=== PATIENT | female | born 1980 | race Caucasian/White ===

== ENCOUNTER 2019-05-06 16:02 | Emergency (ER) | payer MEDICAID ==
--- NOTE | 2019-05-06 16:39 | EDM.PDOC ---
ED HPI GENERAL MEDICAL PROBLEM - General Chief Complaint: Upper Extremity Injury/Pain Stated Complaint: LEFT ARM FEELS NUMB Time Seen by Provider: 05/06/19 16:20 Source of Information: Reports: Patient, Old Records History Limitations: Reports: No Limitations - History of Present Illness INITIAL COMMENTS - FREE TEXT/NARRATIVE: 38 yo female presents with L arm numbness since Tuesday night. Gets some subjective relief by holding a vibrating tool in her L axilla. The numbness is worse from the elbow down. She has had intermittent morning numbness in the past to that extremity that improves within a few minutes by shaking the hand. Thinks all 5 of her digits on that hand are equally numb. No hand weakness. Has a mild FALCON today, but had not had this before today. Denies any other issues such as vision changes, weakness, trouble speaking, seizures, issues with swallowing, etc. 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 Onset: Gradual Onset Date: 05/04/19 Duration: Day(s): (2) Location: Reports: Upper Extremity, Left Quality: Reports: Other (numb) Severity: Moderate Improves with: Reports: None Worsens with: Reports: Other (unknown) Context: Reports: Other (see HPI) Associated Symptoms: Reports: No Other Symptoms Treatments GUIDANCE SERVICES COORDINATOR: Reports: Other (see below) (none) Left Arm Pain Score (Numeric/FACES): 5 - Related Data Allergies Allergy/AdvReac Type Severity Reaction Status Date / Time No Known Allergies Allergy Verified 05/06/19 16:18 Home Meds: Home Meds NK [No Known Home Meds] 05/06/19 [History] 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 Denies: Confusion, Dizziness, Syncope, Tremors, Trouble Speaking, Difficulty Walking, Weakness, Change in Speech, Gait Disturbance Psychiatric: Reports: No Symptoms ED EXAM, GENERAL - Physical Exam Exam: See Below Exam Limited By: No Limitations General Appearance: Alert, WD/WN, No Apparent Distress Eye Exam: Bilateral Eye: EOMI, Normal Inspection, PERRL Ears: Normal External Exam, Normal Canal, Hearing Grossly Normal, Normal TMs Ear Exam: Bilateral Ear: Auricle Normal, Canal Normal, TM normal Nose: Normal Inspection, No Blood Throat/Mouth: Normal Inspection, Normal Lips, Normal Oropharynx, Normal Voice, No Airway Compromise Head: Atraumatic, Normocephalic Neck: Normal Inspection, Non-Tender, Full Range of Motion, Other (no change in sx's with forceful coughing. ). No: Limited Range of Motion Respiratory/Chest: No Respiratory Distress, Lungs Clear, Normal Breath Sounds, No Accessory Muscle Use Cardiovascular: Regular Rate, Rhythm, No Edema Back Exam: Normal Inspection Extremities: Normal Inspection, Normal Range of Motion, Non-Tender, No Pedal Edema, Other (no weakness) Neurological: Alert, Oriented, CN II-XII Intact, Normal Cognition, No Motor/ Sensory Deficits, Other (DTR's are normal. Tinnel's test makes the long finger get more numb. Phalen's test also makes her sx's worse. ) Psychiatric: Normal Affect, Normal Mood Skin Exam: Warm, Dry, Intact, Normal Color, No Rash Course - Vital Signs Last Recorded V/S: Last Vital Signs Temp 36.9 C 05/06/19 16:19 Pulse 83 05/06/19 16:19 Resp 16 05/06/19 16:19 BP 145/90 H 05/06/19 16: Pulse Ox 98 05/06/19 16:19 Departure - Departure Time of Disposition: 16:50 Disposition: Home, Self-Care 01 Condition: Fair Clinical Impression: Carpal tunnel syndrome on left - Discharge Information *PRESCRIPTION DRUG MONITORING PROGRAM REVIEWED*: No *COPY OF PRESCRIPTION DRUG MONITORING REPORT IN PATIENT ADDI: No Instructions: Carpal Tunnel Syndrome, [id number] Referrals: PCP,None [Primary Care Provider] - Additional Instructions: Wear splint at all times, except with bathing. Take ibuprofen 600 mg every 6 hrs with food. Recheck in the clinic for either more testing or neurological referral. Return if a lot worse.
== END 2019-05-06 17:06 | disposition home or self-care (01) ==
LOC: JP.ED 16:02
DX: G56.02 Carpal tunnel syndrome, left upper limb (principal)
CPT/HCPCS: 99283

== ENCOUNTER 2020-07-28 06:12 | Day surgery (SDC) | payer MEDICAID ==
[2020-07-28] MEDS ORDERED: Sodium Chloride 0.9% 1,000 ML IV SCH (07:00)
[2020-07-28] MEDS ORDERED: Propofol 200 MG/20 ML SDV ONE ×2 (07:30→08:03)
[2020-07-28] MEDS ORDERED: fentaNYL 100 MCG/2 ML SDV ONE (07:30)
[2020-07-28] MEDS ORDERED: Midazolam 1 MG/ML 2 ML SDV ONE (07:30)
--- NOTE | 2020-07-28 12:38 | OR ---
DATE OF PROCEDURE: 07/28/2020 SURGEON: Raffi Colindres MD PROCEDURES: 1. Colonoscopy. 2. Hemorrhoid banding, internal. COMPLICATIONS: None. NUCLEAR REACTOR TECHNICIAN: None. ANESTHESIA: MAC. PREOPERATIVE DIAGNOSIS: GI bleeding. POSTOPERATIVE DIAGNOSIS: GI bleeding. RISKS: Risks, benefits, alternatives, and limitations including, but not limited to infection, bleeding, and perforation were explained to the patient who wished to proceed. PROCEDURE IN DETAIL: The patient was placed in left lateral decubitus position. Digital rectal exam was performed. Digital rectal exam showed prominent internal hemorrhoids in addition to prominent external non-thrombosed hemorrhoids. The scope was introduced and advanced atraumatically to the ileocecal valve. A photo was taken of this. The scope was brought back to the ascending, transverse, descending colon, and retroflexed. No masses. No old or new blood. No polyps. No evidence of colitis. Greater than 8 minutes was spent removing the scope. On retroflex, a prominent hemorrhoid was noted. This was banded x1. The patient tolerated the procedure well. The prep was acceptable, approximately 95% of luminal surface could be seen. Raffi Colindres MD /[id number]
== END 2020-07-28 09:30 | disposition home or self-care (01) ==
LOC: JP.SDS 06:12
PROVIDERS: ATTEND Surgery
DX: K64.8 Other hemorrhoids (principal); K64.4 Residual hemorrhoidal skin tags; F17.200 Nicotine dependence, unspecified, uncomplicated; E66.9 Obesity, unspecified; K21.9 Gastro-esophageal reflux disease without esophagitis; Z68.35 Body mass index [BMI] 35.0-35.9, adult
CPT/HCPCS: 45398; J2250; J2704; J3010